=== PATIENT | male | born 1950 | race Caucasian/White ===

== ENCOUNTER 2016-05-21 11:10 | Emergency (ER) | payer BC ==
[2016-05-21 12:52] VITALS: BP 136/80
--- NOTE | 2016-05-21 12:58 | ED ---
Skin Complaint - HPI Summary HPI Summary: complaint of raised red area on his back that he noticed this morning has had a pimple there for years that he has been I &D for many years intermittent pain that is aching and worse with pressure denies fever and chills hasn'tr taken any medication for pain - History of Current Complaint Time Seen by Provider: 05/21/16 12:49 Stated Complaint: SKIN COMPLAINT Hx Obtained From: Patient Aggravating Symptom(s): Clothing Alleviating Symptom(s): Nothing - Allergy/Home Medications Allergies/Adverse Reactions: Allergies Allergy/AdvReac Type Severity Reaction Status Date / Time Codeine Allergy Dizziness Verified 11/26/14 11:13 Home Medications: Home Medications Cholesterol 1 pow XX DAILY 05/21/16 [History Confirmed 05/21/16] PMH/Surg Hx/FS Hx/Imm Hx Previously Healthy: Yes Cardiovascular History: Reports: Hx Hypertension - Surgical History Surgery Procedure, Year, and Place: Surgery for broken sinus bone, removal of varicous veins. Infectious Disease History: No Infectious Disease History: Denies: Traveled Outside the [place] in Last 30 Days - Family History Known Family History: Positive: Hypertension - mother Negative: Cardiac Disease, Diabetes - Social History Alcohol Use: None Substance Use Type: Reports: None Smoking Status (MU): Former Smoker Review of Systems Constitutional: Negative Eyes: Negative Positive: Epistaxis Cardiovascular: Negative Respiratory: Negative Gastrointestinal: Negative Genitourinary: Negative Musculoskeletal: Negative Skin: Other - abscess on back Neurological: Negative Psychological: Normal All Other Systems Reviewed And Are Negative: Yes Physical Exam Triage Information Reviewed: Yes Vital Signs On Initial Exam: Initial Vitals Temp Pulse Resp BP Pulse Ox 98.7 F 75 16 136/80 100 05/21/16 12:42 05/21/16 12:42 05/21/16 12:42 05/21/16 12:42 05/21/16 12:42 Vital Signs Reviewed: Yes Appearance: Positive: Well-Appearing Skin: Positive: Other - left upper back 3cm x4 cm abscess -large flucttttuant area beneath Eyes: Positive: JEANA, Conjunctiva Clear ENT: Positive: Normal ENT inspection Neck: Positive: Supple, No Lymphadenopathy Respiratory/Lung Sounds: Positive: Clear to Auscultation. Negative: Decreased Breath Sounds Cardiovascular: Positive: Normal, RRR Abdomen Description: Positive: Nontender, Soft Bowel Sounds: Positive: Present Musculoskeletal: Negative: Edema Left, Edema Right Neurological: Positive: Normal, Alert, Oriented to Person Place, Time Psychiatric: Positive: Normal AVPU Assessment: Alert Procedures - Incision and Drainage Site: left back - 3x4cm - large amount of serosanguinous fliud expressed Anesthesia: Lidocaine Instrument(s): Scalpel Packing: Other - pressure dressing Diagnostics - Vital Signs Vital Signs Temp Pulse Resp BP Pulse Ox 05/21/16 12:42 98.7 F 75 16 136/80 100 - Laboratory Lab Statement: Any lab studies that have been ordered have been reviewed, and results considered in the medical decision making process. Course/Dx - Differential Diagnoses - Skin Complaint Differential Diagnoses: Abscess - Diagnoses Provider Diagnoses: Abscess Discharge - Discharge Plan Condition: Stable Disposition: HOME Prescriptions: Sulfamethox/Trimethoprim DS* [Bactrim DS 800/160 TAB*] 1 tab PO BID #14 tab Patient Education Materials: Abscess Follow-up (ED) Referrals: Lucinda Li MD [Primary Care Provider] - Additional Instructions: Please take antibiotic as directed. change dressing daily make appt with your primary care provider in 2-3 days for recheck of abscess Increase fluids and rest Take acetaminophen for fever or pain Please review your discharge instructions. If your symptoms do not improve or you develop a fever, increased pain or increase in redness of area on back, please call your primary care provider or return to urgent care.
[2016-05-21] MEDS ORDERED: Lidocaine 2% W/EPI 1:100,000* 20 ML MDV ONE (13:14)
== END 2016-05-21 13:59 | disposition home or self-care (01) ==
LOC: UCCORT 11:10
DX: L02.212 Cutaneous abscess of back [any part, except buttock and flank] (principal); Z87.891 Personal history of nicotine dependence; Z88.5 Allergy status to narcotic agent
CPT/HCPCS: 87070; 87076; 87205; 87640; 87641; 99212; G0463